=== PATIENT | female | born 1965 | race Caucasian/White ===

== ENCOUNTER 2016-08-03 09:48 | Emergency (ER) | payer BC ==
[2016-08-03 08:44] LABS: BASOPHILS 0.5 %; BASOPHILS ABSOLUTE 0.04 10/3/uL (0.0-0.16); EOSINOPHILS 3.9 %; ER CBC TAT 0 Hrs 05 Mins; HEMATOCRIT 39.4 % (36.0-48.0); HEMOGLOBIN 13.7 g/dL (12.0-16.0); IMMATURE GRANULOCYTES 0.1 %; IMMATURE GRANULOCYTES ABSOLUTE 0.01 10/3/uL (0.0-0.11); LYMPHOCYTES 47.9 %; LYMPHOCYTES ABSOLUTE 3.73 10/3/uL (0.67-4.30); MEAN CORPUS HGB CONC 34.8 g/dL (32.0-36.0); MEAN CORPUSCULAR VOLUME 86.2 fL (80-100); MONOCYTES 8.7 %; MONOCYTES ABSOLUTE 0.68 10/3/uL (0.21-1.20); NEUTROPHILS 38.9 %; NEUTROPHILS ABSOLUTE 3.03 10/3/uL (2.02-8.40); PLATELET COUNT 344 10/3/uL (150-400); RBC DISTRIBUTION WIDTH 14.6 % (12.0-16.0); RED CELL COUNT 4.57 10/6/uL (4.0-5.6); WHITE BLOOD CELLS 7.8 10/3/uL (4.5-10.5)
[2016-08-03 08:50] LABS: MANUAL DIFF NO %
[2016-08-03 08:52] LABS: INTERNATIONAL NORMAL RATI 1.1 UNITS (-); PARTIAL THROMBO TIME 27.5 SEC (22.5-37.2); PROTIME (NOT ORD) 13.6 SEC (12.0-14.5)
[2016-08-03 09:01] LABS: ALBUMIN 3.3 G/DL (3.5-5.0); ALKALINE PHOSPHATASE 109 U/L (45-117); BUN (BLOOD UREA NITROGEN) 12 MG/DL (6-23); CHEST PAIN PROFILE TAT 0 Hrs 22 Mins; CHLORIDE, SERUM 106 MMOL/L (96-112); CO2 (CARBON DIOXIDE) 26 MMOL/L (24-34); CREATININE 0.84 MG/DL (0.55-1.02); DIRECT BILIRUBIN < 0.1 MG/DL (0.0-0.4); GFR AFRICAN AMERICAN 94 ML/MIN (>=60); GFR NON AFRICAN AMERICAN 81 ML/MIN (>=60); GLUCOSE, SERUM 87 MG/DL (60-99); INDIRECT BILIRUBIN(NOT ORDER) 0.2 MG/DL (0.1-0.9); POTASSIUM, SERUM 4.2 MMOL/L (3.5-5.3); SGOT(AST) 19 U/L (5-40); SGPT(ALT) 24 U/L (5-65); SODIUM, SERUM 141 MMOL/L (135-148); TOTAL BILIRUBIN 0.3 MG/DL (0-1.2); TOTAL PROTEIN 7.5 G/DL (6.0-8.5); TROPONIN I <0.02 NG/ML (<0.05)
[2016-08-03 09:23] LABS: WBC (NOT ORDERED) (RFLEX) 0 (0-5)
[2016-08-03 09:38] LABS: ASCORBIC ACID (UR NOT ORDER) NEG (NEG); BILIRUBIN, URINE NEGATIVE (NEG); ER URINALYSIS TAT 0 Hrs 16 Mins; KETONE, URINE NEGATIVE (NEG); LEUKOCYTE ESTERASE(NOT OR NEG (NEG); NITRITE (URINE) NEG (NEG)
== END 2016-08-03 11:21 | disposition home or self-care (01) ==
LOC: ER 09:48
PROVIDERS: Nurse Practitioner
DX: R10.12 Left upper quadrant pain (principal); M79.662 Pain in left lower leg; F32.9 Major depressive disorder, single episode, unspecified; F17.200 Nicotine dependence, unspecified, uncomplicated
CPT/HCPCS: 71010; 74176; 80048; 80076; 81001; 83690; 83735; 84484; 85025; 85610; 85730; 93005; 93971; 96374; 99285; J1170; J2405

== ENCOUNTER 2016-09-03 19:26 | Emergency (ER) | payer BC ==
[2016-09-04 01:03] LABS: BASOPHILS 0.4 %; BASOPHILS ABSOLUTE 0.03 10/3/uL (0.0-0.16); EOSINOPHILS 4.9 %; EOSINOPHILS ABSOLUTE 0.39 10/3/uL (0.0-0.53); ER CBC TAT 0 Hrs 10 Mins; HEMATOCRIT 36.4 % (36.0-48.0); HEMOGLOBIN 12.3 g/dL (12.0-16.0); IMMATURE GRANULOCYTES 0.2 %; IMMATURE GRANULOCYTES ABSOLUTE 0.02 10/3/uL (0.0-0.11); LYMPHOCYTES 47.3 %; LYMPHOCYTES ABSOLUTE 3.79 10/3/uL (0.67-4.30); MEAN CORPUS HGB CONC 33.8 g/dL (32.0-36.0); MEAN CORPUSCULAR HEMOGLOB 29.6 pg (26.0-34.0); MEAN CORPUSCULAR VOLUME 87.7 fL (80-100); MEAN PLATELET VOLUME 9.2 fL (9.2-13.0); MONOCYTES 10.2 %; MONOCYTES ABSOLUTE 0.82 10/3/uL (0.21-1.20); NEUTROPHILS ABSOLUTE 2.96 10/3/uL (2.02-8.40); PLATELET COUNT 324 10/3/uL (150-400); RBC DISTRIBUTION WIDTH 15.7 % (12.0-16.0); RED CELL COUNT 4.15 10/6/uL (4.0-5.6)
[2016-09-04 01:04] LABS: MANUAL DIFF NO %
[2016-09-04 01:09] LABS: PARTIAL THROMBO TIME 30.3 SEC (22.5-37.2); PROTIME (NOT ORD) 13.3 SEC (12.0-14.5)
[2016-09-04 01:21] LABS: A/G RATIO 0.8 (0.7-1.9); ALBUMIN 3.2 G/DL (3.5-5.0); CALCIUM, SERUM 8.7 MG/DL (8.5-10.4); CHLORIDE, SERUM 105 MMOL/L (96-112); CO2 (CARBON DIOXIDE) 29 MMOL/L (24-34); CPK (IF ELEVATED MB BANDS) 223 U/L (0-200); CREATININE 0.85 MG/DL (0.55-1.02); GFR AFRICAN AMERICAN 93 ML/MIN (>=60); GFR NON AFRICAN AMERICAN 80 ML/MIN (>=60); GLUCOSE, SERUM 72 MG/DL (60-99); POTASSIUM, SERUM 3.9 MMOL/L (3.5-5.3); SGOT(AST) 29 U/L (5-40); SGPT(ALT) 36 U/L (5-65); SODIUM, SERUM 141 MMOL/L (135-148); TOTAL BILIRUBIN 0.3 MG/DL (0-1.2); TOTAL PROTEIN 7.2 G/DL (6.0-8.5); TROPONIN I <0.02 NG/ML (<0.05)
[2016-09-04 01:25] LABS: ALKALINE PHOSPHATASE 129 U/L (45-117); BUN (BLOOD UREA NITROGEN) 8 MG/DL (6-23)
[2016-09-04 01:44] LABS: CK-MB 4.3 NG/ML
[2016-09-04 01:59] LABS: ASCORBIC ACID (UR NOT ORDER) NEG (NEG); BILIRUBIN, URINE NEGATIVE (NEG); ER URINALYSIS TAT 0 Hrs 00 Mins; KETONE, URINE NEGATIVE (NEG); LEUKOCYTE ESTERASE(NOT OR LARGE (NEG); NITRITE (URINE) NEG (NEG)
[2016-09-04 02:00] LABS: WBC (NOT ORDERED) (RFLEX) > 182 (0-5)
== END 2016-09-04 03:19 | disposition home or self-care (01) ==
LOC: ER 19:26
PROVIDERS: Specialist
DX: N39.0 Urinary tract infection, site not specified (principal); G62.9 Polyneuropathy, unspecified; F17.200 Nicotine dependence, unspecified, uncomplicated; K21.9 Gastro-esophageal reflux disease without esophagitis; F32.9 Major depressive disorder, single episode, unspecified; F41.9 Anxiety disorder, unspecified; Z88.2 Allergy status to sulfonamides; Z88.8 Allergy status to other drugs, medicaments and biological substances
CPT/HCPCS: 70450; 71010; 80053; 81001; 82550; 82553; 84484; 85025; 85610; 85730; 87077; 87086; 87186; 93005; 96372; 99285

== ENCOUNTER 2016-09-21 21:37 | Inpatient (IN) | payer BC ==
--- NOTE | ~2016-09-21 | DS ---
Discharge Summary [facility] [address] [place]. [address] NAME: JUANITA DASH : 67 STATUS : DIS IN PAT#: [id number] AGE: 51 ADM/REG DATE : 09/21/16 MR#: [id number] REPORT SERV DATE: 10/04/16 DICTATED BY: BRIAN DARNELL DATE: 10/03/16 REPORT STATUS : Draft TRANSCRIBED BY: MURALI DATE: 10/03/16 Data Collection from hospitalization DISCHARGE DIAGNOSES: 1. Coronary artery disease. 2. Tobacco use. 3. Anxiety. 4. Neuropathy. 5. Obesity. 6. Hyperlipidemia. 7. Tobacco use. 8. Arthritis. CONSULTATIONS: None. PROCEDURES PERFORMED: 1. Cardiac catheterization on 09/24/2016. 2. Myocardial perfusion imaging study on 09/22/2016. MEDICATIONS: Acetylcysteine 600 mg every morning, Elavil 25 mg at bedtime, aspirin 81 mg every morning, Lipitor one tablet at bedtime, Wellbutrin 200 mg every morning, Coreg 3.125 mg one tablet twice a day, Celexa 40 mg every morning, vitamin D 50,000 units every seven days, Neurontin 1800 mg at bedtime and 1200 mg every morning, NitroQuick one tablet sublingually as needed, Prilosec 40 mg every morning, Requip 1 mg at bedtime, and Ultram 100 mg three times a day as needed. CONDITION AT DISCHARGE: Stable. DISPOSITION: The patient was discharged home on a low-sodium, low-cholesterol, cardiac diet with activities as instructed. She would follow up with Dr. Gretta Barrera on 10/15/2016. She would follow up with Dr. Redd Conway on 10/09/2016. HOSPITAL COURSE: This is a 51-year-old female who has no history of coronary artery disease, but does have cardiac risk factors of smoking, obesity, family history of cardiovascular disease. She presented to the emergency room from work after she reported that she was under too much stress at home. 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 She felt right lower chest pain that lasted approximately one plus hours. When her symptoms continued, she went to the nurse at her work who said she looked okay and her EKG looked okay, but advised that she go to the emergency room for evaluation. She had been chest pain-free since being in the emergency room. She denied any abdominal pain or nausea. She had a negative CT scan of the abdomen for left upper quadrant abdominal pain in the emergency room in July of 2016. She was diagnosed with a urinary tract infection in the emergency room. During an emergency room visit on 09/04/2016, she reports that she had completed antibiotics recently and was not having any dysuria symptoms. Also in the emergency room on 09/04/2016, she had dizziness symptoms and reported that these have gotten much better and were no longer issue for her. She does have chronic dizziness. She denies dyspnea on exertion, edema, palpitations, or exertional chest pain. She did report that she was fatigued and was under a lot of stress. Discharge Summary [id number] [place]. [address] NAME: JUANITA DASH : 67 STATUS : DIS IN [facility]#: [id number] AGE: 51 ADM/REG DATE : 09/21/16 MR#: [id number] REPORT SERV DATE: 10/04/16 DICTATED BY: BRIAN DARNELL DATE: 10/03/16 REPORT STATUS : Draft TRANSCRIBED BY: MURALI DATE: 10/03/16 She was admitted to the hospital at this time for further evaluation and treatment. Upon admission, she had 3 negative troponins. There were nonspecific ST-T changes on her EKGs. A nuclear stress test was requested for risk stratification. She was encouraged to stop smoking and lose weight. Her home medications for neuropathy were continued. The following day, a myocardial perfusion imaging study was performed. This demonstrated anterior apical and apical ischemia. Poor exercise tolerance was noted. Post infusion left ventricular ejection fraction was greater than 60%. She had had no chest pain overnight. She had no edema. On 09/23/2016, her lungs were clear in all hall. Cardiac enzymes remained negative. EKG showed anterior T-wave inversions. It was felt that the patient would need to undergo a cardiac catheterization. She agreed to proceed. On 09/24/2016, she was tearful regarding her family stress. She had no chest pain or shortness of breath. She was taken to the cardiac electroplating laborer where she underwent the above-mentioned procedure. She tolerated this well, and there were no complications. She was found to have nonobstructive coronary artery disease. Medical therapy was recommended. Discharge instructions were given. Due to her improved and stable condition, she was discharged home with the above- stated instructions. Information collected by: Candace Sahu I submit the above information as my discharge summary. BIRD/MURALI Brian Darnell MD / [id number] CC: Maira Paz, MSN, TECHNICIAN PREVENTATIVE MEDICINE-BC [facility] [place]
--- NOTE | ~2016-09-21 | PUL ---
[address] [address] NAME: JUANITA DASH : 67 STATUS : DIS IN PAT#: [id number] AGE: 51 ADM/REG DATE : 09/21/16 MR#: [id number] REPORT SERV DATE: 10/01/16 DICTATED BY: SERAFIN ARAUZ DATE: 09/29/16 REPORT STATUS : Draft TRANSCRIBED BY: MURALI DATE: 09/29/16 PULMONARY FUNCTION TEST PULMONARY FUNCTION TEST: Total valid sampling time was 5 hours 41 minute and 55 seconds. Sats were less than 88% for 1 minute 28 seconds. INTERPRETATION: Overnight oximetry while on room air is normal. VIV/MURALI Serafin Arauz M.D. / [id number] CC: Maira Paz, MSN, PARAEDUCATOR-BC Philip Pagan
--- NOTE | ~2016-09-21 | HP ---
History And Physical [address] [facility] [place]. [address] NAME: JUANITA DASH : 67 STATUS : ADM Margo PAT#: [id number] AGE: 51 ADM/REG DATE : 09/21/16 MR#: [id number] REPORT SERV DATE: 09/22/16 DICTATED BY: KAROL LOVE DATE: 09/22/16 REPORT STATUS : Draft TRANSCRIBED BY: MODL DATE: 09/22/16 DATE OF ADMISSION: 09/21/2016 PRIMARY CARE PROVIDER: Dr. Maria Pagan. CHIEF COMPLAINT: Chest pain. HISTORY OF PRESENT ILLNESS: This is a 51-year-old, white female who has no history of coronary artery disease but has cardiac risk factors of smoking, obesity, family history of cardiovascular disease. She went to the emergency room from work yesterday after she reports that she is under too much stress at home. 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 She felt right lower chest pain that lasted approximately 1+ hours. When her symptoms continued, she went to the nurse at work who said that she looked okay and EKG looked okay but advised she go to the emergency room for evaluation. She has been chest pain-free since the emergency room. She denies any abdominal pain or nausea. She did have a negative CT of her abdomen for left upper quadrant abdominal pain in the emergency room 07/2016. She was diagnosed with a UTI in the emergency room. During ER visit 09/04/2016 reports that she completed antibiotics recently and is not having any dysuria symptoms. She was also in the emergency room 09/04/2016 with dizziness symptoms and she reports that has gotten much better and is no longer an issue for her. She does have chronic dizziness. She denies any dyspnea on exertion, edema, palpitations or exertional chest pain. She does report that she is fatigued and again under a lot of stress. PAST MEDICAL HISTORY: 1. Obesity. 2. Tobacco use. 3. Lower extremity neuropathy. 4. Arthritis. 5. History of dizziness, also negative head CT 09/04/2016 during ER visit. 6. Recent UTI, completed antibiotics (ER visit 09/04/2016). 7. Left upper quadrant abdominal pain, ER visit 08/03/[address] of the abdomen and pelvis, and no further abdominal pain per patient report. 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 She reports she smokes approximately 7 cigarettes per day and has smoked for 15 years, averaging 1 pack per day. She denies any alcohol or illicit drug use. She denies any formal exercise program. FAMILY HISTORY: Sister of heart disease. Mother has congestive heart failure. ALLERGIES: SULFA REACTION SWELLS THROAT. VISTARIL REACTION RASH AND ITCHING. HOME MEDICATIONS: List reviewed and is as follows: 1. Acetylcysteine 600 mg p.o. every morning. 2. Elavil 25 mg p.o. at bedtime (prescribed 50 mg to [facility] History And Physical [address] [address] NAME: JUANITA DASH : 67 STATUS : ADM Margo PAT#: [id number] AGE: 51 ADM/REG DATE : 09/21/16 MR#: [id number] REPORT SERV DATE: 09/22/16 DICTATED BY: KAROL LOVE DATE: 09/22/16 REPORT STATUS : Draft TRANSCRIBED BY: MURALI DATE: 09/22/16 Pharmacy. 3. Aspirin 81 mg p.o. every morning. 4. Wellbutrin 200 mg p.o. every morning. 5. Ceftin 250 mg p.o. b.i.d. x7 days. This was completed on 09/12/2016. 6. Celexa 40 mg p.o. every morning. 7. Vitamin D 50,000 units p.o. q.7 days on Saturday morning. 8. Gabapentin 1800 mg p.o. at bedtime. 9. Neurontin 1200 mg p.o. every morning. 10.Prilosec 40 mg p.o. every morning. 11.Requip 1 tablet p.o. at bedtime. 12.Ultram 100 mg p.o. three times per day p.r.n. pain. REVIEW OF SYSTEMS: The patient denies having a cardiac evaluation. As above per HPI, all other systems reviewed and negative. PHYSICAL EXAMINATION: VITAL SIGNS: Oxygen saturation 97% on room air, BMI 33.2 with a weight of 98.9 kg, temperature 97.8, pulse 67, respiratory rate 17, blood pressure 101/51. GENERAL: Well developed, well nourished. In no apparent distress. HEENT: Head normocephalic. No xanthelasma. Sclera clear, anicteric. Moist mucous membranes without pallor. No lymphadenopathy. No deficits noted. NECK: Trachea midline. Supple. No thyromegaly, JVD, or bruits. RESPIRATORY: Unlabored respirations. Breath sounds clear bilaterally to posterior auscultation. No wheezes, rhonchi or crackles. CARDIOVASCULAR: Regular rate and rhythm. No murmur, rub, or gallop appreciated. No chest wall tenderness to palpation. ABDOMEN: Soft, nontender, and nondistended. Active bowel sounds auscultated x4 quadrants. No organomegaly and no masses. No aortic bruit. EXTREMITIES: DP/PT and radial pulses 2+ bilaterally. No clubbing, cyanosis, or edema. SKIN: Warm, dry, intact. No rash. Normal turgor. MUSCULOSKELETAL: Moves all extremities in bed without difficulty. NEURO/PSYCH: Alert and oriented x3 with no acute distress. Affect appropriate to current situation. LABORATORY DATA: BMP: Sodium 137, potassium 3.8, creatinine 1.09, glucose 78, calcium 9, magnesium 2.1. CBC: White blood cell count 9.3, hemoglobin 12.3, hematocrit 36.3, platelets 351. Troponin less than 0.02 x3. Chest x-ray, PA and lateral, no acute cardiopulmonary disease identified. EKG personally interpreted, normal sinus rhythm with T-wave inversion noted in V2 and V3 in first EKG. Second and third EKGs normal sinus rhythm with T-wave inversion in leads V2 only. History And Physical [address] [address] NAME: JUANITA DASH : 67 STATUS : ADM Margo PAT#: [id number] AGE: 51 ADM/REG DATE : 09/21/16 MR#: [id number] REPORT SERV DATE: 09/22/16 DICTATED BY: KAROL LOVE DATE: 09/22/16 REPORT STATUS : Draft TRANSCRIBED BY: MURALI DATE: 09/22/16 Telemetry, normal sinus rhythm. ASSESSMENT AND PLAN: 1. Precordial chest pain. Three negative troponins. Nonspecific-ST changes on EKGs. Cardiac risk factors include tobacco use, obesity, and family history of cardiovascular disease. Plan nuclear stress test today for risk stratification. If it is low risk with no ischemia then RN may discharge the patient home with followup with primary care provider in one to two weeks. 2. Tobacco use. I advised cessation for cardiovascular well being. 3. Obesity. I have encouraged weight loss and dietary modifications with a low-fat diet as previously mentioned. 4. Neuropathy. I will continue her home medications. 5. Family history of cardiovascular disease. This is noted. Further recommendations are forthcoming for rounding solid waste truck driver for [facility] who sees the patient down in the stress testing area. ISHMAEL/MURALI Karol Love NP / [id number] CC: Maira Paz, MSN, MOLECULAR BIOLOGY DIRECTOR-BC
[2016-09-21 18:35] LABS: BASOPHILS 0.4 %; BASOPHILS ABSOLUTE 0.04 10/3/uL (0.0-0.16); EOSINOPHILS 3.1 %; EOSINOPHILS ABSOLUTE 0.29 10/3/uL (0.0-0.53); ER CBC TAT 0 Hrs 11 Mins; HEMATOCRIT 36.3 % (36.0-48.0); HEMOGLOBIN 12.3 g/dL (12.0-16.0); IMMATURE GRANULOCYTES 0.2 %; IMMATURE GRANULOCYTES ABSOLUTE 0.02 10/3/uL (0.0-0.11); LYMPHOCYTES 47.9 %; LYMPHOCYTES ABSOLUTE 4.43 10/3/uL (0.67-4.30); MEAN CORPUS HGB CONC 33.9 g/dL (32.0-36.0); MEAN CORPUSCULAR HEMOGLOB 29.1 pg (26.0-34.0); MEAN CORPUSCULAR VOLUME 85.8 fL (80-100); MONOCYTES 9.7 %; NEUTROPHILS 38.7 %; NEUTROPHILS ABSOLUTE 3.57 10/3/uL (2.02-8.40); PLATELET COUNT 351 10/3/uL (150-400); RBC DISTRIBUTION WIDTH 15.6 % (12.0-16.0); RED CELL COUNT 4.23 10/6/uL (4.0-5.6); WHITE BLOOD CELLS 9.3 10/3/uL (4.5-10.5)
[2016-09-21 18:36] LABS: MANUAL DIFF NO %
[2016-09-21 18:42] LABS: INTERNATIONAL NORMAL RATI 1.1 UNITS (-); PARTIAL THROMBO TIME 28.1 SEC (22.5-37.2)
[2016-09-21 18:52] LABS: BUN (BLOOD UREA NITROGEN) 13 MG/DL (6-23); CHEST PAIN PROFILE TAT 0 Hrs 28 Mins; CHLORIDE, SERUM 104 MMOL/L (96-112); CO2 (CARBON DIOXIDE) 28 MMOL/L (24-34); CREATININE 1.09 MG/DL (0.55-1.02); GFR AFRICAN AMERICAN 69 ML/MIN (>=60); GFR NON AFRICAN AMERICAN 59 ML/MIN (>=60); GLUCOSE, SERUM 78 MG/DL (60-99); POTASSIUM, SERUM 3.8 MMOL/L (3.5-5.3); SODIUM, SERUM 137 MMOL/L (135-148); TROPONIN I <0.02 NG/ML (<0.05)
[2016-09-21] MEDS ORDERED: NEUR600 PO ×2 (22:38→22:39)
[2016-09-21] MEDS ORDERED: AMIT25 PO (22:38)
[2016-09-21] MEDS ORDERED: REQUIP1 PO (22:39)
[2016-09-21] MEDS ORDERED: WELL100 PO (22:40)
[2016-09-21] MEDS ORDERED: NAC 600 PO (22:40)
[2016-09-21] MEDS ORDERED: CELEXA40 MG PO (22:40)
[2016-09-21] MEDS ORDERED: ULTRAM50 PO (22:41)
[2016-09-21] MEDS ORDERED: ASAB PO (22:41)
[2016-09-21] MEDS ORDERED: PRILOSEC40 MG PO (22:41)
[2016-09-21] MEDS ORDERED: VITD PO (22:42)
[2016-09-21] MEDS ORDERED: CEFT2 PO (22:42)
[2016-09-23 04:12] LABS: BASOPHILS 0.5 %; BASOPHILS ABSOLUTE 0.04 10/3/uL (0.0-0.16); EOSINOPHILS 3.1 %; EOSINOPHILS ABSOLUTE 0.23 10/3/uL (0.0-0.53); HEMATOCRIT 36.7 % (36.0-48.0); HEMOGLOBIN 12.2 g/dL (12.0-16.0); IMMATURE GRANULOCYTES 0.1 %; IMMATURE GRANULOCYTES ABSOLUTE 0.01 10/3/uL (0.0-0.11); LYMPHOCYTES 54.2 %; LYMPHOCYTES ABSOLUTE 4.07 10/3/uL (0.67-4.30); MANUAL DIFF NO %; MEAN CORPUS HGB CONC 33.2 g/dL (32.0-36.0); MEAN CORPUSCULAR HEMOGLOB 28.8 pg (26.0-34.0); MEAN CORPUSCULAR VOLUME 86.8 fL (80-100); MEAN PLATELET VOLUME 9.3 fL (9.2-13.0); MONOCYTES 10.3 %; MONOCYTES ABSOLUTE 0.77 10/3/uL (0.21-1.20); NEUTROPHILS 31.8 %; NEUTROPHILS ABSOLUTE 2.39 10/3/uL (2.02-8.40); PLATELET COUNT 313 10/3/uL (150-400); RBC DISTRIBUTION WIDTH 15.4 % (12.0-16.0); RED CELL COUNT 4.23 10/6/uL (4.0-5.6); WHITE BLOOD CELLS 7.5 10/3/uL (4.5-10.5)
[2016-09-23 04:27] LABS: BUN (BLOOD UREA NITROGEN) 15 MG/DL (6-23); CALCIUM, SERUM 8.8 MG/DL (8.5-10.4); CHLORIDE, SERUM 109 MMOL/L (96-112); CO2 (CARBON DIOXIDE) 29 MMOL/L (24-34); GFR AFRICAN AMERICAN 68 ML/MIN (>=60); GFR NON AFRICAN AMERICAN 58 ML/MIN (>=60); GLUCOSE, SERUM 88 MG/DL (60-99)
[2016-09-23 04:28] LABS: SODIUM, SERUM 144 MMOL/L (135-148)
[2016-09-23 13:20] LABS: CHOL/HDL RATIO(NOT ORDER) 6.9 (0-5); CHOLESTEROL 229 MG/DL (< 200); HDL CHOLESTEROL 33 MG/DL (> 49); LDL CHOLESTEROL 163 MG/DL (< 130); NON-HDL CHOLESTEROL 196 MG/DL (< 160); TRIGLYCERIDE 168 MG/DL (< 150)
[2016-09-24 03:51] LABS: BASOPHILS 0.4 %; BASOPHILS ABSOLUTE 0.03 10/3/uL (0.0-0.16); EOSINOPHILS 2.9 %; EOSINOPHILS ABSOLUTE 0.23 10/3/uL (0.0-0.53); HEMOGLOBIN 12.2 g/dL (12.0-16.0); IMMATURE GRANULOCYTES 0.1 %; IMMATURE GRANULOCYTES ABSOLUTE 0.01 10/3/uL (0.0-0.11); LYMPHOCYTES 56.3 %; LYMPHOCYTES ABSOLUTE 4.45 10/3/uL (0.67-4.30); MEAN CORPUSCULAR HEMOGLOB 28.6 pg (26.0-34.0); MEAN CORPUSCULAR VOLUME 86.7 fL (80-100); MEAN PLATELET VOLUME 9.2 fL (9.2-13.0); MONOCYTES 10.7 %; MONOCYTES ABSOLUTE 0.85 10/3/uL (0.21-1.20); NEUTROPHILS 29.6 %; NEUTROPHILS ABSOLUTE 2.34 10/3/uL (2.02-8.40); PLATELET COUNT 304 10/3/uL (150-400); RBC DISTRIBUTION WIDTH 15.6 % (12.0-16.0); RED CELL COUNT 4.27 10/6/uL (4.0-5.6); WHITE BLOOD CELLS 7.9 10/3/uL (4.5-10.5)
[2016-09-24 03:54] LABS: MANUAL DIFF NO %
[2016-09-24 04:08] LABS: BUN (BLOOD UREA NITROGEN) 14 MG/DL (6-23); CHLORIDE, SERUM 107 MMOL/L (96-112); CO2 (CARBON DIOXIDE) 29 MMOL/L (24-34); CREATININE 1.02 MG/DL (0.55-1.02); GFR AFRICAN AMERICAN 74 ML/MIN (>=60); GFR NON AFRICAN AMERICAN 64 ML/MIN (>=60); GLUCOSE, SERUM 96 MG/DL (60-99); POTASSIUM, SERUM 3.9 MMOL/L (3.5-5.3); SODIUM, SERUM 144 MMOL/L (135-148)
[2016-09-24] MEDS ORDERED: NITROQUICK0.4 MG SL (16:40)
[2016-09-24] MEDS ORDERED: LIPITOR40 PO (16:42)
[2016-09-24] MEDS ORDERED: COREG3 PO (16:45)
== END 2016-09-24 17:08 | disposition home or self-care (01) | DRG 287 ==
LOC: ER 21:37 → CDU1 22:15
PROVIDERS: Emergency Medicine; Nurse Practitioner Family
PROC: B2111ZZ Fluoroscopy of Multiple Coronary Arteries using Low Osmolar Contrast (ICD-10-PCS; principal; 2016-09-24)
PROC: B2151ZZ Fluoroscopy of Left Heart using Low Osmolar Contrast (ICD-10-PCS; principal; 2016-09-24)
DX: I25.110 Atherosclerotic heart disease of native coronary artery with unstable angina pectoris (principal); G62.9 Polyneuropathy, unspecified; F41.9 Anxiety disorder, unspecified; E66.9 Obesity, unspecified; I34.0 Nonrheumatic mitral (valve) insufficiency; M19.90 Unspecified osteoarthritis, unspecified site; E78.00 Pure hypercholesterolemia, unspecified; Z68.33 Body mass index [BMI] 33.0-33.9, adult; Z88.2 Allergy status to sulfonamides; Z82.49 Family history of ischemic heart disease and other diseases of the circulatory system; Z72.0 Tobacco use
CPT/HCPCS: 71020; 78452; 80048; 80061; 83735; 84484; 84703; 85025; 85610; 85730; 93005; 93017; 93458; 94762; 99152; 99285; A9270-GY; A9502; C1769; C1887; C1894; J0153; J2250; J3010; Q9967